=== PATIENT | female | born 1985 | race Caucasian/White ===

== ENCOUNTER → 2021-09-11 14:49 | Outpatient (CLI) | payer OTHER, SELFPAY | PROVIDERS: Visit Provider Nurse Practitioner | DX: Z20.822 Contact with and (suspected) exposure to COVID-19 (principal) | CPT/HCPCS: C9803; U0003; U0005 ==

== ENCOUNTER 2022-09-23 09:41 | Emergency (ER) | payer OTHER, SELFPAY ==
[2022-09-23 09:42] VITALS: BP 128/79; PULSE 101; RESP 18; TEMP 36.7; O2SAT 98
--- NOTE | 2022-09-23 09:47 | PC.NURSE ---
DR. BLUM AT BEDSIDE
[2022-09-23 09:51] VITALS: BP 104/65; PULSE 80; RESP 17; O2SAT 99
--- NOTE | 2022-09-23 10:00 | HMH.EDALLER ---
Discharge Plan Disposition Patient Disposition: Home, Self-Care Condition: Good Prescriptions Prescriptions: New diphenhydramine HCl [Benadryl] 25 mg capsule 25 mg PO Q8H PRN (Reason: itching) 5 Days Qty: 15 0RF methylprednisolone [Medrol (Yon)] 4 mg tablets,dose pack 4 mg PO DAILY Qty: 21 0RF No Action buprenorphine-naloxone 8-2 mg tablet, sublingual 1 tab SUBLINGUAL BID Referrals Follow up/Referrals: Raeann Melton MD [Primary Care Provider] - See instructions Activity Restrictions/Add. Instructions Additional Instructions/Restrictions: Follow-up with Dr. Melton. Return for wheezing difficulty breathing worsening rash or any other concerns within the next 8 hours Clinical Impressions Clinical Impression: Allergic reaction Instructions Patient Instructions: DI for Rash Discharge ED Provider: Rustam Latham Allergic React/Insect Bite HPI General Chief complaint: Allergic Reaction Stated complaint: possible allergic reaction, face swollen, phy ref Time Seen by Provider: 09/23/22 09:45 Mode of Arrival - ED Triage: Ambulatory Source of Information: Patient Limitations: No Limitations History of Present Illness HPI narrative: 37-year-old female presents with rash for 1 week. She says she has not tried anything to get it to be better and it has not worsened but is not getting better. She does not have any known exposures. No new insect bites tick bites or detergents. She has no wheezing or shortness of breath. No abdominal pain nausea vomiting. Rashes over forearms and mild swelling of face. No difficulty swallowing or breathing. complaint: allergic reaction Onset (ago): week(s) (1) Exposure: unknown Symptoms: rash and itching Treatment prior to arrival: none Allergies Allergy/AdvReac Type Severity Reaction Status Date / Time No Known Drug Allergies Allergy Unknown Verified 09/23/22 09:47 [NKDA] Severity: mild Related Data Home Medications Medication Instructions Recorded Confirmed buprenorphine 8 mg-naloxone 2 mg 1 tab sublingual BID RECOVERY 05/29/21 09/23/22 sublingual tablet Previous Rx's Medication Instructions Recorded diphenhydramine HCl 25 mg capsule 25 mg PO Q8H PRN itching 5 days 09/23/22 (Benadryl) #15 caps methylprednisolone 4 mg tablets in 4 mg PO DAILY #21 tabs 09/23/22 a dose pack (Medrol (Yon)) [facility] Disclaimer: The information contained in this section may have been updated after the patient was seen, as this information can be updated by other users. Surgical History (Updated 09/23/22 @ 09:54 by Lakshmi Newman RN) H/O tubal ligation Hx of tonsillectomy Family History (Updated 09/23/22 @ 09:54 by Lakshmi Newman RN) Other No significant family history Social History (Updated 09/23/22 @ 09:54 by Lakshmi Newman RN) Smoking Status: Current every day smoker alcohol intake: never substance use type: former substance user, marijuana, crack/cocaine, opiates and painkillers current occupational status: employed Travel in the last 8 weeks: None ROS Obtained: Yes All systems reviewed & no additional complaints except as documented Constitutional Constitutional: Denies fatigue and Denies fever(s) Eyes Eyes: Denies irritation ENT Ears, Nose, Mouth, and Throat: Denies dizziness, Denies lip swelling and Denies mouth lesions Cardiovascular Cardiovascular: Denies chest pain and Denies dyspnea Respiratory Respiratory: Denies dyspnea Gastrointestinal Gastrointestingal: Denies abdominal pain, nausea or vomiting Genitourinary Female Genitourinary: Denies hematuria Musculoskeletal Musculoskeletal: Denies muscle cramps Integumentary/Breasts Skin/Breast: Reports pruritus and Reports rash Neurologic Neurologic: Denies dizziness Endocrine Endocrine: Denies fatigue Allergic/Immunologic Allergic/Immunologic: Denies lip swelling Physical Exam General General appearance: alert and in no apparent distress Eye Ey
--- NOTE | 2022-09-23 10:18 | PC.NURSE ---
ROUNDED ON PT AT THIS TIME, PT RESTING WITH EYES CLOSED. NO NEEDS VOICED
--- NOTE | 2022-09-23 11:07 | PC.NURSE ---
DR. BLUM AT BEDSIDE TO REEVALUATE PT
[2022-09-23 11:33] VITALS: BP 116/60; PULSE 80; RESP 18; TEMP 36.6; O2SAT 97
== END 2022-09-23 11:34 | disposition home or self-care (01) ==
PROVIDERS: Emergency Provider Emergency Medicine; PCP Family Medicine
DX: T78.40XA Allergy, unspecified, initial encounter (principal); F17.210 Nicotine dependence, cigarettes, uncomplicated; Z90.49 Acquired absence of other specified parts of digestive tract; Z98.51 Tubal ligation status
CPT/HCPCS: 99283; 99284